=== PATIENT | female | born 1930 | race American Indian/Alaskan Native ===

== ENCOUNTER 2017-02-12 10:22 | Emergency (ER) | payer MEDICARE ==
[2017-02-12 10:49] VITALS: BP 147/63
[2017-02-12 11:26] LABS: Hematocrit 37.7 % (30.3-42.9); Hemoglobin 11.8 gm/dl (10.1-14.3); Mean Corpuscular HGB Conc 31 % (30-34); Mean Corpuscular Hemoglobin 28 pg (28-32); Mean Corpuscular Volume 89 fl (79-97); Platelet Count 206 K/mm3 (140-440); Red Blood Count 4.23 M/mm3 (3.65-5.03); Red Cell Distribution Width 16.4 % (13.2-15.2)
[2017-02-12 11:42] LABS: Albumin 3.3 g/dL (3.9-5); Calcium 8.2 mg/dL (8.4-10.2)
--- NOTE | 2017-02-12 12:05 | XRay Report ---
Single view chest: Compared to 03/09/16. History: Difficulty breathing. Findings: Cardiomegaly. Trachea is midline. Mild pulmonary venous congestion. No consolidation or pleural effusion. No significant interval change. Impression: No significant interval change.
[2017-02-12 12:37] LABS: Anisocytosis 1+; Basophils % (Manual) 0 % (0.0-1.8); Platelet Estimate Consistent w Auto; Total Cells Counted 100
--- NOTE | 2017-02-12 12:59 | Emergency Department Report ---
ED Shortness of Breath HPI - General Chief Complaint: Dyspnea/Respdistress Stated Complaint: DIFFICULTY BREATHING Source: patient, family Mode of arrival: Stretcher Limitations: Physical Limitation - History of Present Illness Initial Comments: Having some trouble breathing for the last two days. Concerned that she may be coming down with bronchitis or pneumonia. MD Complaint: shortness of breath -: Gradual, days(s) (2) Severity: mild Consistency: intermittent Improves With: rest Worsens With: exertion Known History Of: congestive heart failure, diabetes Context: other ( takes her outside everyday for a ride around town, even while the temps in 20s and 30s.) Associated Symptoms: denies other symptoms Treatments Prior to Arrival: none - Related Data Home Oxygen Therapy: No Home Medications Medication Instructions Recorded Confirmed Last Taken Apixaban [Eliquis] 5 mg PO BID 03/09/16 03/09/16 Unknown Bimatoprost [Lumigan 0.01%] 1 drop OP QPM 03/09/16 03/09/16 Unknown Escitalopram Oxalate [Lexapro] 5 mg PO QHS 03/09/16 03/09/16 Unknown Flecainide [Tambocor] 50 mg PO Q12H 03/09/16 03/09/16 Unknown Insulin Detemir [Levemir VIAL] 50 unit SQ QHS 03/09/16 03/09/16 Unknown LORazepam [Ativan] 0.5 mg PO BID PRN 03/09/16 03/09/16 Unknown Memantine Xr [Namenda Xr] 14 mg PO QDAY 03/09/16 03/09/16 Unknown Methimazole 10 mg PO QDAY 03/09/16 03/09/16 Unknown Metoprolol Succinate 200 mg PO QDAY 03/09/16 03/09/16 Unknown QUEtiapine [SEROquel] 25 mg PO BID 03/09/16 03/09/16 Unknown Sitagliptin Phosphate [Januvia] 50 mg PO QDAY 03/09/16 03/09/16 Unknown Valsartan [Diovan] 160 mg PO QDAY 03/09/16 03/09/16 Unknown Previous Rx's Medication Instructions Recorded Last Taken Type Furosemide [Lasix TAB] 40 mg PO QDAY #30 tablet 03/11/16 Unknown Rx Potassium Chloride [K-Dur] 20 meq PO QDAY #30 tablet 03/11/16 Unknown Rx amLODIPine [Norvasc] 5 mg PO DAILY #30 tab 03/11/16 Unknown Rx Allergies Allergy/AdvReac Type Severity Reaction Status Date / Time latex Allergy Rash Verified 03/09/16 09:10 Penicillins Allergy Rash Verified 03/09/16 09:10 procaine HCl [From Novocain] Allergy Unknown Verified 03/09/16 09:10 Sulfa (Sulfonamide Allergy Rash Verified 03/09/16 09:10 Antibiotics) morphine AdvReac Unknown Verified 03/09/16 09:10 promethazine HCl AdvReac Unknown Verified 03/09/16 09:10 [From Phenergan] ED Review of Systems ROS: Stated complaint: DIFFICULTY BREATHING Other details as noted in HPI Constitutional: denies: chills, fever Eyes: denies: eye pain, eye discharge, vision change ENT: denies: ear pain, throat pain Respiratory: denies: cough, shortness of breath, wheezing Cardiovascular: denies: chest pain, palpitations Endocrine: no symptoms reported Gastrointestinal: denies: abdominal pain, nausea, diarrhea Genitourinary: denies: urgency, dysuria, discharge Musculoskeletal: denies: back pain, joint swelling, arthralgia Skin: denies: rash, lesions Neurological: denies: headache, weakness, paresthesias Psychiatric: denies: anxiety, depression Hematological/Lymphatic: denies: easy bleeding, easy bruising ED Past Medical Hx - Past Medical History Hx Hypertension: Yes Hx Congestive Heart Failure: Yes Hx Diabetes: Yes Hx Renal Disease: Yes (no dialysis) Hx Dementia: Yes Additional medical history: a-fib, CAD, glaucoma, high cholesterol, hyperthyroidism, macular degeneration, PVD - Surgical History Hx Cholecystectomy: Yes Additional Surgical History: bilateral BKA - Social History Smoking Status: Never Smoker Substance Use Type: None - Medications Home Medications: Home Medications Medication Instructions Recorded Confirmed Last Taken Type Apixaban [Eliquis] 5 mg PO BID 03/09/16 03/09/16 Unknown History Bimatoprost [Lumigan 0.01%] 1 drop OP QPM 03/09/16 03/09/16 Unknown History Escitalopram Oxalate [Lexapro] 5 mg PO QHS 03/09/16 03/09/16 Unknown History Flecainide [Tambocor] 50 mg PO Q12H 03/09/16 03/09/16 Unknown History Insulin Detemir [Levemir VIAL] 50 unit SQ QHS 03/09/16 03/09/16 Unknown History LORazepam [Ativan] 0.5 mg PO BID PRN 03/09/16 03/09/16 Unknown History Memantine Xr [Namenda Xr] 14 mg PO QDAY 03/09/16 03/09/16 Unknown History Methimazole 10 mg PO QDAY 03/09/16 03/09/16 Unknown History Metoprolol Succinate 200 mg PO QDAY 03/09/16 03/09/16 Unknown History QUEtiapine [SEROquel] 25 mg PO BID 03/09/16 03/09/16 Unknown History Sitagliptin Phosphate [Januvia] 50 mg PO QDAY 03/09/16 03/09/16 Unknown History Valsartan [Diovan] 160 mg PO QDAY 03/09/16 03/09/16 Unknown History Furosemide [Lasix TAB] 40 mg PO QDAY #30 tablet 03/11/16 Unknown Rx Potassium Chloride [K-Dur] 20 meq PO QDAY #30 tablet 03/11/16 Unknown Rx amLODIPine [Norvasc] 5 mg PO DAILY #30 tab 03/11/16 Unknown Rx ED Physical Exam - General Limitations: Physical Limitation General appearance: alert, in no apparent distress - Head Head exam: Present: atraumatic, normocephalic - Eye Eye exam: Present: normal appearance - ENT ENT exam: Present: mucous membranes moist - Neck Neck exam: Present: normal inspection - Respiratory Respiratory exam: Present: normal lung sounds bilaterally. Absent: respiratory distress - Cardiovascular Cardiovascular Exam: Present: regular rate, normal rhythm. Absent: systolic murmur, diastolic murmur, rubs, gallop - GI/Abdominal GI/Abdominal exam: Present: soft, normal bowel sounds - Extremities Exam Extremities exam: Present: normal inspection - Back Exam Back exam: Present: normal inspection - Neurological Exam Neurological exam: Present: alert, oriented X3 - Psychiatric Psychiatric exam: Present: normal affect, normal mood - Skin Skin exam: Present: warm, dry, intact, normal color. Absent: rash ED Course Vital Signs 02/12/17 02/12/17 02/12/17 10:28 10:36 10:48 Temperature 97.7 F 97.7 F Pulse Rate 79 78 76 Respiratory 15 30 H 21 Rate Blood Pressure 136/62 151/57 Blood Pressure 147/63 [Right] O2 Sat by Pulse 99 96 99 Oximetry 02/12/17 02/12/17 11:30 12:24 Temperature Pulse Rate Respiratory 21 Rate Blood Pressure Blood Pressure [Right] O2 Sat by Pulse 99 100 Oximetry - Reevaluation(s) Reevaluation #1: 02/12/17 13:06 Patient feels better at this point. No breathing difficulties. Reevaluation #2: 02/12/17 13:07 Patient informed me that she is taking Prednisone. Her PCP prescribed it for her a month ago for her arthritis. She has had labs done since she started and it was explained to her that her WBC and Glucose would go up. ED Medical Decision Making - Lab Data Result diagrams: 02/12/17 11:07 02/12/17 11:07 - EKG Data -: EKG Interpreted by Me EKG shows normal: sinus rhythm Rate: normal - EKG Data When compared to previous EKG there are: previous EKG unavailable Interpretation: no acute changes, LVH - Radiology Data Radiology results: report reviewed Critical Care Time: No Critical care attestation.: If time is entered above; I have spent that time in minutes in the direct care of this critically ill patient, excluding procedure time. ED Disposition Clinical Impression: Acute on chronic diastolic (congestive) heart failure, Leukocytosis, Diabetes mellitus type 2 in nonobese Disposition: DC-01 TO HOME OR SELFCARE Is pt being admited?: No Does the pt Need Aspirin: No Condition: Stable Instructions: Diabetes Mellitus Type 2 in Adults (ED) Referrals: PRIMARY CARE [Primary Care Provider] - 3-5 Days
== END 2017-02-12 14:31 | disposition home or self-care (01) ==
LOC: ED 10:22
DX: I50.33 Acute on chronic diastolic (congestive) heart failure (principal); E11.9 Type 2 diabetes mellitus without complications; I10 Essential (primary) hypertension; E78.00 Pure hypercholesterolemia, unspecified; E05.90 Thyrotoxicosis, unspecified without thyrotoxic crisis or storm; D72.829 Elevated white blood cell count, unspecified; Z91.040 Latex allergy status; Z88.2 Allergy status to sulfonamides; Z88.8 Allergy status to other drugs, medicaments and biological substances; Z88.0 Allergy status to penicillin
CPT/HCPCS: 36415; 71045; 80053; 82962; 85007; 85025; 93005; 93010